=== PATIENT | male | born 1955 | race Asian ===

== ENCOUNTER 2021-12-17 16:36 | Inpatient (IN) | payer MEDICARE ==
[2021-12-17] MEDS ORDERED: ONDANSETRON 4 MG/2 ML VIAL IVP STA (16:54)
[2021-12-17] MEDS ORDERED: MORPHINE SULFATE 4 MG/ML SYRINGE IV STA (16:54)
[2021-12-17] MEDS ORDERED: PIPERACILLIN-TAZOBACTAM 3.375 GM in SODIUM CHLORIDE 0.9% 100 ML IVPB STA (16:57)
[2021-12-17] MEDS ORDERED: SODIUM CHLORIDE 0.9% 1,000 ML IV SCH (17:00)
--- NOTE | 2021-12-17 17:09 | ED ---
Abdominal Pain HPI - General Stated Complaint: Abd Pain Time Seen by Provider: 12/17/21 16:41 Source: RN notes reviewed - History of Present Illness Initial Comments: This is a pleasant 66-year-old male who does not speak French. History is gathered via translation by the patient's daughter who is in [place]. Patient has had lower abdominal pain some constipation and diminished appetite for about 3 or 4 days. Patient presented to [facility] and was diagnosed with perforated appendicitis. Patient transferred to this facility. Patient complaining of some lower abdominal pain at this time with some nausea. According to the daughter, patient really has no significant past medical history. No previous surgeries. Negative social history. No history of diabetes or heart disease. No headache, no fever or chills, no changes in vision or hearing, no sore throat or difficulty with speech, no neck pain, no chest pain or shortness of breath, no changes in urination or bowel movements, no numbness or tingling, no extremity pain, no skin rashes or lesions. Past medical, surgical, social, and family history reviewed. - Related Data Home Medications Medication Instructions Recorded Confirmed Atorvastatin [Lipitor] 20 mg PO HS 12/17/21 12/17/21 Allergies Allergy/AdvReac Type Severity Reaction Status Date / Time No Known Allergies Allergy Verified 12/17/21 18:39 Review of Systems ROS Statement: Those systems with pertinent positive or pertinent negative responses have been documented in the HPI. ROS Other: All systems not noted in ROS Statement are negative. Past Medical History Past Medical History: Hyperlipidemia, Prostate Disorder Past Surgical History: No Surgical Hx Reported Past Anesthesia/Blood Transfusion Reactions: No Reported Reaction Past Psychological History: No Psychological Hx Reported Smoking Status: Never smoker Past Alcohol Use History: None Reported Past Drug Use History: None Reported General Exam Limitations: no limitations General appearance: alert, in no apparent distress Head exam: Present: atraumatic, normocephalic, normal inspection Eye exam: Present: normal appearance, PERRL, EOMI. Absent: scleral icterus, conjunctival injection, periorbital swelling ENT exam: Present: normal exam, mucous membranes moist, normal external ear exam. Absent: mucous membranes dry Neck exam: Present: normal inspection, full ROM. Absent: tenderness, meningismus, lymphadenopathy Respiratory exam: Present: normal lung sounds bilaterally. Absent: respiratory distress, wheezes, rales, rhonchi, stridor, chest wall tenderness, accessory muscle use Cardiovascular Exam: Present: regular rate, normal rhythm, normal heart sounds. Absent: systolic murmur, diastolic murmur, rubs, gallop, clicks GI/Abdominal exam: Present: soft, tenderness, guarding, rebound (Lower abdomen), normal bowel sounds. Absent: distended, rigid Extremities exam: Present: normal inspection, full ROM, normal capillary refill. Absent: tenderness, pedal edema, joint swelling, calf tenderness Back exam: Present: normal inspection Neurological exam: Present: alert, oriented X3, CN II-XII intact Psychiatric exam: Present: normal affect, normal mood Skin exam: Present: warm, dry, intact, normal color. Absent: rash Course Vital Signs 12/17/21 12/17/21 12/17/21 16:40 17:00 19:00 Temperature 98.0 F 98.7 F Pulse Rate 117 H 110 H 122 H Pulse Rate [ Radial] Respiratory 20 20 18 Rate Blood Pressure 138/95 122/85 Blood Pressure [Right Arm] O2 Sat by Pulse 90 L 95 96 Oximetry 12/17/21 20:00 Temperature 99.0 F Pulse Rate Pulse Rate [ 123 H Radial] Respiratory 20 Rate Blood Pressure Blood Pressure 116/78 [Right Arm] O2 Sat by Pulse 91 L Oximetry - Reevaluation(s) Reevaluation #1: 12/17/21 19:30 Patient did achieve a 1 L fluid bolus here. Within half an running at 130 mL per hour. However after fluid bolus patient's heart rate did jump up into the 120s. EKG was done revealing sinus tachycardia with a rate of 126. No evidence of ST elevation. Normal QRS morphology. Moderate T wave abnormality in V4 and V3 likely related to rate. Borderline left axis deviation. Normal intervals. No comparison study. Patient had no chest pain. This EKG was done by the RN and response to sinus tachycardia. - Consultations Consultation #1: Case was discussed with the on-call surgeon, Dr. reese who will take the patient to surgery later this evening. Zosyn ordered. Additional labs withheld at this point. Medical Decision Making - Medical Decision Making Transferred from [facility] for perforated appendicitis. Computed tomography scan is reviewed with regards to the report. The patient had diminished appetite and lower abdominal pain with some decreased urinary output for the past 2 or 3 days, possibly even 4 days. Patient does have a history of BPH and is supposed to take Flomax. Patient also has a history of hyperlipidemia. No other significant health issues. CBC revealed a white blood cell, 16,300 with no evidence of left shift. CMP showed a CO2 of 21, anion gap of 16, glucose 180, otherwise unremarkable. Urinalysis showed some proteinuria with a few red cells. Rare bacteria, essentially nondiagnostic lactic acid was 2.2 The case was discussed in detail with ED attending physician. Presentation, findings, treatment plan discussed in detail. [employer] Specialist Dr. Mustafa Disposition Clinical Impression: Acute appendicitis Narrative: Acute appendicitis with perforation Disposition: ADMITTED IP TO THIS HOSP
[2021-12-17] MEDS ORDERED: ONDANSETRON 4 MG/2 ML VIAL IVP PRN (17:12)
[2021-12-17] MEDS ORDERED: MORPHINE SULFATE 4 MG/ML SYRINGE IV PRN (17:12)
[2021-12-17] MEDS ORDERED: NALOXONE 0.4 MG/ML 1 ML VIAL IV PRN ×2 (17:12→22:50)
[2021-12-17] MEDS ORDERED: SODIUM CHLORIDE 0.9% 1,000 ML IV ONE (17:14)
[2021-12-17] MEDS ORDERED: PROPOFOL 10 MG/ML 20 ML VIAL IV ONE (21:40)
[2021-12-17] MEDS ORDERED: SUCCINYLCHOLINE CHLORIDE 200 MG/10 ML VIAL IV ONE (21:40)
[2021-12-17] MEDS ORDERED: fentaNYL (PF) 50 MCG/ML 2 ML AMP ONE (21:40)
[2021-12-17] MEDS ORDERED: LIDOCAINE 2% INJ 20 MG/ML (2 ML VIAL) ONE (21:40)
[2021-12-17] MEDS ORDERED: MIDAZOLAM 2 MG/2 ML VIAL ONE (21:40)
[2021-12-17] MEDS ORDERED: PHENYLEPHRINE-0.9% NACL SYG 1,000 MCG/10 ML SYRINGE ONE (21:40)
[2021-12-17] MEDS ORDERED: ROCURONIUM 10 MG/ML (5 ML VIAL) IV ONE (21:40)
[2021-12-17] MEDS ORDERED: BUPIVACAIN-EPI 0.25%-1:200,000 30 ML VIAL SQ ONE ×3 (21:41→22:04)
[2021-12-17] MEDS ORDERED: IV FLUID CONTINUATION 800 ML IV ONE (21:45)
--- NOTE | 2021-12-17 21:52 | P.GSHP ---
History of Present Illness H&P Date: 12/17/21 This is a 66-year-old male primarily speaks mandrin was found to have acute appendicitis on computed tomography scan in the emergency department and [place]. He was transferred to [facility]. Patient had been complaining of abdominal pain for 3 days. That's when he went to the emergency department and [place]. His daughter was translating for us. Patient states she has right lower quadrant abdominal pain he has no other complaints at this time. He has no significant past surgical history no significant past medical history. NO KNOWN DRUG ALLERGIES. Past Medical History Past Medical History: Hyperlipidemia, Prostate Disorder History of Any Multi-Drug Resistant Organisms: None Reported Past Surgical History: No Surgical Hx Reported Past Anesthesia/Blood Transfusion Reactions: No Reported Reaction Past Psychological History: No Psychological Hx Reported Smoking Status: Never smoker Past Alcohol Use History: None Reported Past Drug Use History: None Reported Medications and Allergies Home Medications Medication Instructions Recorded Confirmed Type Atorvastatin [Lipitor] 20 mg PO HS 12/17/21 12/17/21 History Allergies Allergy/AdvReac Type Severity Reaction Status Date / Time No Known Allergies Allergy Verified 12/17/21 18:39 Surgical - Exam Osteopathic Statement: *. No significant issues noted on an osteopathic stru ctural exam other than those noted in the History and Physical/Consult. Vital Signs Temp Pulse Resp BP Pulse Ox 98.0 F 117 H 20 138/95 90 L 12/17/21 16:40 12/17/21 16:40 12/17/21 16:40 12/17/21 16:40 12/17/21 16:40 - General well developed, well nourished, no distress - Eyes PERRL - Neck no masses, trachea midline - Cardiovascular Rhythm: regular - Abdomen Tender to palpation right lower quadrant Abdomen: soft - Neurologic normal coordination, normal sensation Assessment and Plan Assessment: Acute appendicitis questionable perforation on computed tomography scan Plan: Plan for laparoscopic appendectomy possible open was discussed in detail with the patient and the patient's daughter who was translating for the patient. Patient be started on IV antibiotics given IV fluids. Risks benefits and alternatives to surgery including risks of bleeding infection damage surrounding tissue need for further operation need for conversion to open were all discussed with the patient and the patient's daughter. Patient stated he understood agreed and consented. I discussed with the daughter and the patient that sometimes perforated appendicitis is treated nonoperatively with IV antibiotics however the patient does not have any fluid collections seen on CT that were drainable and at this time if the appendix is a clear at the base it may be best to perform the appendectomy to prevent further complication and possible sepsis. patient and the family were agreeable.
[2021-12-17] MEDS ORDERED: LACTATED RINGERS 1,000 ML IV ONE (22:15)
[2021-12-17] MEDS ORDERED: HYDROmorphone 0.5 MG/0.5 ML SYRINGE IVP PRN (22:50)
[2021-12-17] MEDS ORDERED: HYDROcodone/APAP 5-325MG 1 EACH TAB PO PRN (22:50)
--- NOTE | 2021-12-17 22:50 | P.OP ---
Date of Procedure: 12/17/21 Preoperative Diagnosis: Acute perforated appendicitis Postoperative Diagnosis: Same Procedure(s) Performed: Laparoscopic appendectomy Anesthesia: DOLLY Surgeon: Napoleon Prasad Estimated Blood Loss (ml): 5 Condition: stable Disposition: floor Operative Findings: Perforated appendicitis Description of Procedure: Patient is brought operative suite remained in the supine position on general endotracheal anesthesia per Department of anesthesia timeout performed correct patient correct procedure correct site was verified he was prepped and draped in usual sterile fashion. A 5 mm incision was made in the left upper quadrant at pal[place] point after local anesthetic was used to anesthetize the skin and subcutaneous tissues directly over this area. Using a 5 mm Visiport the abdomen was entered under direct visualization and insufflated there is immediately purulent ascites noted within the abdomen. This was suctioned free. There was adhesive and inflammatory changes in the right lower quadrant. Patient was placed in Trendelenburg right side up position. A 50 m port was placed suprapubic and under direct visualization a 12 mm port was placed in the left midabdomen. The adhesions were taken down bluntly and the appendix was identified noted to be acutely inflamed the tip was noted to be perforated. The mesial appendix was taken down with the LigaSure device to the base of the appendix at the cecum. This was at the base of the cecum. There was what appeared to be a healthy base of the appendix at the base of the cecum and this was stapled across using a 60 mm purple load Endo RACHAEL stapler. Hemostasis was noted. The abdomen was copiously irrigated and suctioned until clear. The appendix is removed in Endo Catch bag through the 12 mm port site. The port site fascia was closed with an 0 Vicryl with 8 of a Karthikeyan-Shanna suture passer. All ports removed under direct visualization the abdomen was desufflated skin was closed with 4-0 subcuticular Monocryl suture and skin glue patient tolerated procedure well no apparent complications
[2021-12-17] MEDS ORDERED: KETOROLAC 15 MG/ML 1 ML VIAL IVP ONE (22:55)
[2021-12-17] MEDS: LACTATED RINGERS 1,000 ML IV SCH (23:29)
[2021-12-18] MEDS: HEPARIN SODIUM,PORCINE/PF 5,000 UNIT/0.5 ML SYRINGE SQ SCH ×3 (00:19→16:26)
[2021-12-18] MEDS: PIPERACILLIN-TAZOBACTAM 3.375 GM in SODIUM CHLORIDE 0.9% 100 ML IVPB SCH ×3 (02:18→16:26)
--- NOTE | 2021-12-18 15:01 | P.PN ---
Subjective Progress Note Date: 12/18/21 Patient doing well after surgery no complaints tolerating clears. Objective - Vital Signs Vital signs: Vital Signs Temp 97.9 F 12/18/21 08:00 Pulse 104 H 12/18/21 08:54 Resp 16 12/18/21 08:54 BP 127/80 12/18/21 08:00 Pulse Ox 89 L 12/18/21 08:00 FiO2 Intake & Output 12/17/21 12/18/21 12/18/21 18:59 06:59 18:59 Intake Total 1800 Output Total 410 700 Balance 1390 -700 Weight 79.379 kg 79.379 kg Intake: IV 1800 Output: Urine 400 Post Void Residual 700 Estimated Blood Loss 10 Other: Voiding Method Indwelling Catheter Urinal - Constitutional General appearance: Present: cooperative - Respiratory Details: nonlabored - Cardiovascular Rhythm: regular - Gastrointestinal Gastrointestinal Comment(s): S/ND/expected TTP - Psychiatric Psychiatric: Present: A&O x's 3
[2021-12-18] MEDS: TAMSULOSIN 0.4 MG CAP.ER.24H PO SCH (16:26)
[2021-12-18] MEDS: LACTATED RINGERS 1,000 ML IV SCH ×2 (19:06→23:49)
[2021-12-19] MEDS: PIPERACILLIN-TAZOBACTAM 3.375 GM in SODIUM CHLORIDE 0.9% 100 ML IVPB SCH ×3 (01:05→17:22)
[2021-12-19] MEDS: HEPARIN SODIUM,PORCINE/PF 5,000 UNIT/0.5 ML SYRINGE SQ SCH ×3 (01:05→17:21)
[2021-12-19] MEDS: TAMSULOSIN 0.4 MG CAP.ER.24H PO SCH (08:41)
--- NOTE | 2021-12-19 13:01 | P.PN ---
Subjective Progress Note Date: 12/19/21 Patient doing well after surgery no complaints pain is improved tolerating diet no apparent flatus or BM Objective - Vital Signs Vital signs: Vital Signs Temp 98.3 F 12/19/21 08:00 Pulse 87 12/19/21 08:00 Resp 16 12/19/21 08:00 BP 132/84 12/19/21 08:00 Pulse Ox 90 L 12/19/21 08:00 FiO2 Intake & Output 12/18/21 12/19/21 12/19/21 18:59 06:59 18:59 Intake Total 100 500 Output Total 700 1150 Balance -600 -650 Intake: Intake, IV Titration 100 Amount Piperacillin-Tazobactam 3 100 .375 gm In Sodium Chloride 0.9% 100 ml @ 25 mls/hr IVPB Q8H [facility] Rx#: [id number] Oral 500 Output: Urine 1150 Post Void Residual 700 Other: Voiding Method Urinal Urinal Urinal - Constitutional General appearance: Present: cooperative - Cardiovascular Rhythm: regular - Gastrointestinal Gastrointestinal Comment(s): S/NT - Psychiatric Psychiatric: Present: A&O x's 3 Assessment and Plan Assessment: Perforated appendicitis POD#2 lap appendectomy Plan: Continue with IV abx, diet as tolerated, ambulate. Awaiting further bowel function
[2021-12-19 14:01] LABS: Basophils % (A) 0 %; Eosinophils # (A) 0.1 k/uL (0-0.7); Eosinophils % (A) 0 %; HCT 43.5 % (39.0-53.0); Lymphocytes % (A) 7 %; MCH 29.1 pg (25.0-35.0); MCHC 32.3 g/dL (31.0-37.0); MCV 90.1 fL (80.0-100.0); Mean Platelet Volume 7.6; Monocytes # (A) 0.5 k/uL (0-1.0); Monocytes % (A) 3 %; Neutrophils % (A) 89 %; Platelet Count 240 k/uL (150-450); RBC 4.83 m/uL (4.30-5.90); RDW 13.1 % (11.5-15.5); WBC 14.7 k/uL (3.8-10.6)
[2021-12-20] MEDS: HEPARIN SODIUM,PORCINE/PF 5,000 UNIT/0.5 ML SYRINGE SQ SCH ×3 (00:35→17:13)
[2021-12-20] MEDS: PIPERACILLIN-TAZOBACTAM 3.375 GM in SODIUM CHLORIDE 0.9% 100 ML IVPB SCH ×3 (02:50→17:41)
[2021-12-20 08:41] VITALS: RESP 16
[2021-12-20] MEDS: TAMSULOSIN 0.4 MG CAP.ER.24H PO SCH (09:52)
[2021-12-20 11:53] LABS: Basophils % (A) 0 %; Eosinophils # (A) 0.2 k/uL (0-0.7); Eosinophils % (A) 2 %; HCT 41.1 % (39.0-53.0); HGB 13.5 gm/dL (13.0-17.5); Lymphocytes # (A) 1.2 k/uL (1.0-4.8); Lymphocytes % (A) 10 %; MCH 29.2 pg (25.0-35.0); MCHC 32.9 g/dL (31.0-37.0); MCV 88.9 fL (80.0-100.0); Mean Platelet Volume 7.9; Monocytes # (A) 0.5 k/uL (0-1.0); Monocytes % (A) 4 %; Neutrophils # (A) 10.2 k/uL (1.3-7.7); Neutrophils % (A) 83 %; Platelet Count 243 k/uL (150-450); RBC 4.63 m/uL (4.30-5.90); WBC 12.3 k/uL (3.8-10.6)
--- NOTE | 2021-12-20 11:57 | P.PN ---
Subjective Progress Note Date: 12/20/21 Patient doing well passing flatus and had a small BM says he is feeling better no NV today Objective - Vital Signs Vital signs: Vital Signs Temp 97.8 F 12/20/21 08:00 Pulse 85 12/20/21 08:00 Resp 16 12/20/21 08:00 BP 134/81 12/20/21 08:00 Pulse Ox 90 L 12/20/21 08:00 FiO2 Intake & Output 12/19/21 12/20/21 12/20/21 18:59 06:59 18:59 Output Total 150 Balance -150 Output: Urine 150 Other: Voiding Method Urinal Urinal # Voids 3 2 1 - Constitutional General appearance: Present: cooperative - Cardiovascular Rhythm: regular - Gastrointestinal Gastrointestinal Comment(s): S/NT/incisions CDI - Psychiatric Psychiatric: Present: A&O x's 3 - Labs CBC & Chem 7: 12/20/21 11:44 Labs: Abnormal Lab Results - Last 24 Hours (Table) 12/19/21 12/20/21 Range/Units 13:27 11:44 WBC 14.7 H 12.3 H (3.8-10.6) k/uL Neutrophils # 13.0 H 10.2 H (1.3-7.7) k/uL Assessment and Plan Assessment: Perforated appendicitis POD#3 lap appendectomy Plan: Continue with IV abx, soft diet as tolerated, ambulate. If patient tolerates solid food today with no N/V he can be discharged home on oral antibiotics with instructions to follow up with myself in 1 to 2 weeks
[2021-12-20 15:31] VITALS: BP 152/91; PULSE 81; TEMP 98
== END 2021-12-20 20:16 | disposition home or self-care (01) | DRG 340 ==
LOC: EC 16:36 → 4SSUR 16:56
PROVIDERS: ADMIT Student in an Organized Health Care Education/Training Program; ATTEND Student in an Organized Health Care Education/Training Program
PROC: 0DTJ4ZZ Resection of Appendix, Percutaneous Endoscopic Approach (ICD-10-PCS; principal; 2021-12-17 21:28)
DX: K35.32 Acute appendicitis with perforation, localized peritonitis, and gangrene, without abscess (principal); K59.00 Constipation, unspecified; N40.0 Benign prostatic hyperplasia without lower urinary tract symptoms; E78.5 Hyperlipidemia, unspecified; Z79.899 Other long term (current) drug therapy
CPT/HCPCS: 85025; 88304; 93005; 96365; 96366; 96375; 99285